=== PATIENT | male | born 1965 | race Caucasian/White ===

== ENCOUNTER 2017-04-10 17:48 | Emergency (ER) | payer OTHER ==
[2017-04-10 17:51] VITALS: BP 186/104
[2017-04-10] MEDS ORDERED: ZOFRAN INJ 4 MG VIAL IVP ONE (20:29)
[2017-04-10] MEDS ORDERED: MORPHINE SULFATE INJ 4 MG IM ONE (20:29)
[2017-04-10] MEDS ORDERED: ZOFRAN INJ 4 MG VIAL IM ONE (20:31)
--- NOTE | 2017-04-10 20:32 | DR.EXTPAIN ---
HPI - Time seen Time seen: 20:30 - PCP Primary Care Physician: OSCAR REYES - HPI Comment HPI Comment: NO FEVER OR DRAINAGE. GETTING WORSE. - Complaint/Symptoms Chief Complaint Doctor Comments: LEFT ELBOW OLICRNIUM SELLING AND PAIN TIMES FOIR DAYS. Chief Complaint:: PT. C/O LEFT ELBOW PAIN THAT BEGAN 3 DAYS AGO, DENIES INJURY. PT. ALSO C/O RIGHT KNEE PAIN WHICH IS A CHRONIC PROBLEM BUT THE PAIN HAS WORSENED OVER THE PAST FEW DAYS. - Nurses notes reviewed Nurses Notes Review: Yes - Source History Provided: Patient - Mode of arrival Mode of Arrival: Ambulatory - Timing Onset of Chief Complaint: 04/07/17 - Context History of: None - Associated signs and symptoms Associated Signs and Symptoms: Pain, Swelling PMH - PMH Past Medical History: Yes Past Medical History: Angina, Anxiety, Arthritis, Asthma, COPD, Coronary Artery Disease, GERD, Hypertension, [place] Past Surgical History: Yes Surgical History: CABG/Valve Surgery - Family History History of Family Medical Conditions: Yes Family Medical History: Diabetes Mellitus, [place], Sudden Cardiac , Hypertension - Social History Does patient currently use any type of tobacco product: Yes Have you used tobacco products in the last 12 months: Yes Type of Tobacco Use: Cigarettes How many years tobacco product used: 30 Does any household member use tobacco: No Alcohol Use: None Do you use any recreational Drugs:: No Lives With: Spouse Lives Where: Home - infectious screening In the last 2 months have you had wt loss of >10#?: NO Have you had fever, night sweats or hemotysis?: No Have you traveled outside the country in the last 6 months?: No Isolation: Standard ROS - Review of Systems Constitutional: No Symptoms Reported Eyes: No Symptoms Reported ENTM: No Symptoms Reported Respiratoy: No Symptoms Reported Cardiovascular: No Symptoms Reported Gastrointestinal/Abdominal: No Symptoms Reported Genitourinary: No Symptoms Reported Neurological: No Symptoms Reported Musculoskeletal: Left, Elbow Integumentary: Other (POST LT ELBOW SWELLING WITH REDNESS, WARTH AND TENDERNESS. ) Hematologic/Lymphatic: No Symptoms Reported Endocrine: No Symptoms Reported All Other Systems: Reviewed and Negative PE - Vital Signs Vitals: Temperature 98.1 F Pulse Rate 101 Respiratory Rate 17 Blood Pressure [Right Arm] 99/69 Blood Pressure 186/104 O2 Sat by Pulse Oximetry 97 - General Limitations: No Limitations General Appearance: Alert - Head Head Exam: Normal Inspection - Eyes Eye exam: Normal Appearance - ENT ENT Exam: Normal External Ear Exam - Neck Neck Exam: Normal Inspection - Chest Chest Inspection: Symmetric Chest Wall Rise - Respiratory Respiratory Exam: Normal Lung Sounds Bilat Respiratory Exam: Bilateral Clear to Auscultation - Cardiovascular Cardiovascular Exam: Regular Rate, Normal Rhythm, Normal Heart Sounds - Abdominal Exam Abdominal Exam: Normal Bowel Sounds, Soft, Tenderness - Extremities Extremities Exam: Tenderness (LEFT ELBOW OLOCRANIAL SWELLING AON TENDERNESS.), Joint Swelling (LT ELBOW) - Back Back Exam: Normal Inspection - Neurological Neurological Exam: Alert, Oriented X3 - Psychiatric Psychiatric Exam: Normal Affect, Normal Mood - Skin Skin Exam: Erythema MDM - Differential Diagnosis Differential Diagnosis: Other (CELLULITIS/OLICRANIAL SWELLING WITH CYSTIC SWELLING.) Course - Treatment Treatment: SEE ORDERS - Consultation Consultation Comments: DISCUSS PATIENT WITH DR. CONTRERAS. HE WILL FOLLOW UP IN THE OFFICE. - Education/Counseling Education/Counseling: Patient, Education Educated On: Treatment, Diagnosis, Needs for Follow Up ROR - Labs Reviewed Laboratory Results Reviewed?: Yes Result Diagrams: 04/10/17 20:38 04/10/17 20:38 Laboratory: WBC 11.1 X10^3/uL (3.6-10.0) H 04/10/17 20:38 RBC 4.48 X10^6/uL (4.7-6.0) L 04/10/17 20:38 Hgb 12.8 g/dL (13.5-18.0) L 04/10/17 20:38 Hct 37.6 % (42.0-54.0) L 04/10/17 20:38 MCV 83.9 fL (80.0-100.0) 04/10/17 20:38 MCH 28.5 pg (27.0-34.0) 04/10/17 20:38 MCHC 34.0 g/dL (33.0-35.0) 04/10/17 20:38 RDW 13.3 % (11.6-16.5) 04/10/17 20:38 Plt Count 315 X10^3/uL (150.0-450.0) 04/10/17 20:38 MPV 8.0 fL (7.4-11.0) 04/10/17 20:38 Neut % 54.9 % (42.0-75.0) 04/10/17 20:38 Lymph % 35.3 % (21.0-51.0) 04/10/17 20:38 [place] % 6.5 % (0.0-13.0) 04/10/17 20:38 Eos % 2.6 % (0.9-2.9) 04/10/17 20:38 Baso % 0.7 % (0.2-1.0) 04/10/17 20:38 Neut # 6.1 x10^3/uL (2.2-4.8) H 04/10/17 20:38 Lymph # 3.9 X10^3/uL (1.3-2.9) H 04/10/17 20:38 [place] # 0.7 x10^3/uL (0.3-0.8) 04/10/17 20:38 Eos # 0.3 x10^3/uL (0.0-0.2) H 04/10/17 20:38 Baso # 0.1 X10^3/uL (0.0-0.1) 04/10/17 20:38 Absolute Nucleated RBC 0.0 /100WBC 04/10/17 20:38 Sodium 139 mmol/L (136-145) 04/10/17 20:38 Corrected Sodium 139 mmol/L (136-145) 04/10/17 20:38 Potassium 4.0 mmol/L (3.5-5.1) 04/10/17 20:38 Chloride 105 mmol/L (98-107) 04/10/17 20:38 Carbon Dioxide 26.9 mmol/L (21-32) 04/10/17 20:38 BUN 17 mg/dL (7-18) 04/10/17 20:38 Creatinine 1.10 mg/dL (0.70-1.30) 04/10/17 20:38 Est GFR (MDRD) Af Amer > 60 (>60) 04/10/17 20:38 Est GFR (MDRD) Non-Af > 60 (>60) 04/10/17 20:38 Glucose 112 mg/dL (65-99) H 04/10/17 20:38 Uric Acid 7.0 mg/dL (3.5-7.2) 04/10/17 20:38 Calcium 9.5 mg/dL (8.5-10.1) 04/10/17 20:38 Corrected Calcium TNP 04/10/17 20:38 Total Bilirubin 0.20 mg/dL (0.2-1.0) 04/10/17 20:38 AST 13 Units/L (15-37) L 04/10/17 20:38 ALT 27 Units/L (12-78) 04/10/17 20:38 Alkaline Phosphatase 68 Units/L (46-116) 04/10/17 20:38 C-Reactive Protein 21.10 mg/L (0-3.0) H 04/10/17 20:38 Total Protein 7.4 g/dL (6.4-8.2) 04/10/17 20:38 Albumin 3.7 g/dL (3.4-5.0) 04/10/17 20:38 Globulin 3.7 g/dL (2.5-4.5) 04/10/17 20:38 Albumin/Globulin Ratio 1.0 Ratio (1.1-2.1) L 04/10/17 20:38 - XRAY XRAY Interpreted by: Radiologist XRAY Findings: REPORT DISCUSS WITH PATIENT. - Diagnosis Discharge Problem: Cellulitis - Discharge Plan Disposition: 01 HOME, SELF-CARE Condition: Stable Prescriptions: Clindamycin HCl 300 mg PO Q6H #40 cap Ibuprofen [MOTRIN TAB 600 MG *] 600 mg PO TID PRN #20 tab PRN Reason: Pain/Inflammation Tramadol HCl 50 mg PO Q8H PRN #15 tab PRN Reason: Pain - Follow ups/Referrals Follow ups/Referrals: SHANTI CONTRERAS [STAFF PHYSICIAN] - 04/12/17 JUANITO REYES [Primary Care Provider] - 04/12/17 - Instructions Instructions: Cellulitis Additional Instructions: RETURN TO ED IF WORSE.
[2017-04-10] MEDS ORDERED: ZOFRAN INJ 4 MG VIAL ONE (20:34)
[2017-04-10] MEDS ORDERED: MORPHINE SULFATE INJ 4 MG ONE (20:34)
[2017-04-10 20:48] LABS: BASOPHILS # (AUTO) 0.1 X10^3/uL (0.0-0.1); BASOPHILS % (AUTO) 0.7 % (0.2-1.0); EOSINOPHILS # (AUTO) 0.3 x10^3/uL (0.0-0.2); EOSINOPHILS % (AUTO) 2.6 % (0.9-2.9); HEMATOCRIT 37.6 % (42.0-54.0); HEMOGLOBIN 12.8 g/dL (13.5-18.0); LYMPHOCYTES # (AUTO) 3.9 X10^3/uL (1.3-2.9); LYMPHOCYTES % (AUTO) 35.3 % (21.0-51.0); MEAN CORPUSCULAR HEMOGLOBIN 28.5 pg (27.0-34.0); MEAN CORPUSCULAR VOLUME 83.9 fL (80.0-100.0); MONOCYTES # (AUTO) 0.7 x10^3/uL (0.3-0.8); MONOCYTES % (AUTO) 6.5 % (0.0-13.0); NEUTROPHILS # (AUTO) 6.1 x10^3/uL (2.2-4.8); NEUTROPHILS % (AUTO) 54.9 % (42.0-75.0); PLATELET COUNT 315 X10^3/uL (150.0-450.0); RED BLOOD COUNT 4.48 X10^6/uL (4.7-6.0); RED CELL DISTRIBUTION WIDTH 13.3 % (11.6-16.5); WHITE BLOOD COUNT 11.1 X10^3/uL (3.6-10.0)
[2017-04-10 20:58] LABS: ALANINE AMINOTRANSFERASE 27 Units/L (12-78); ALBUMIN 3.7 g/dL (3.4-5.0); ALKALINE PHOSPHATASE 68 Units/L (46-116); ASPARTATE AMINO TRANSFERASE 13 Units/L (15-37); BLOOD UREA NITROGEN 17 mg/dL (7-18); CALCIUM 9.5 mg/dL (8.5-10.1); CARBON DIOXIDE 26.9 mmol/L (21-32); CHLORIDE 105 mmol/L (98-107); COR NA(FOR HYPERGLY) 139 mmol/L (136-145); GLUCOSE 112 mg/dL (65-99); SODIUM 139 mmol/L (136-145); TOTAL PROTEIN 7.4 g/dL (6.4-8.2); eGFR BLACK RACES > 60 (>60); eGFR NON BLACK RACES > 60 (>60)
--- NOTE | 2017-04-10 21:14 | RAD ---
HISTORY: Right knee pain. Study: Right knee two views Comparison: None. Findings: There is no evidence for acute cortical disruption or dislocation. The medial and lateral tibiofemo ral compartments are unremarkable without significant joint space narrowing. The lateral radiograph fails to demonstrate significant joint effusion. Patellofemoral compartment is normal in appearanc e. IMPRESSION: 1. Negative exam. Reported By:
--- NOTE | 2017-04-10 21:14 | RAD ---
Left elbow, three views Indication: Elbow pain Findings: No cortical disruption or malalignment identified. Joint spaces are intact. There is an en thesophyte of the posterior olecranon at the triceps attachment. Mild overlying soft tissue swelling is noted. No bony erosions are seen. No large joint effusion. Impression: No acute skeletal abnormality or significant arthropathy. Enthesopathy at the triceps attachment. Reported By:
[2017-04-10] MEDS ORDERED: TORADOL 60 MG VIAL IM ONE (21:31)
[2017-04-10] MEDS ORDERED: TORADOL 60 MG VIAL ONE (21:32)
== END 2017-04-10 23:29 | disposition home or self-care (01) ==
LOC: ER 17:56
DX: L03.114 Cellulitis of left upper limb (principal)
CPT/HCPCS: 36415; 73070; 73560; 80053; 84550; 85025; 86140; 96372; 99283; J1885; J2270; J2405